=== PATIENT | female | born 1985 | race Caucasian/White ===

== ENCOUNTER 2018-11-21 09:05 | Emergency (ER) | payer OTHER ==
[~2018-11-21] VITALS: Ht 157.5 cm; Wt 55.8 kg
[2018-11-21 09:07] VITALS: Ht 157.5 cm; Wt 55.8 kg
[2018-11-21 10:00] VITALS: BP 126/85
== END 2018-11-21 10:00 | disposition home or self-care (01) ==
LOC: ED 09:05
DX: J02.9 Acute pharyngitis, unspecified (principal)